=== PATIENT | male | born 1950 | race African-American/Black ===

== ENCOUNTER 2024-11-07 09:08 | Inpatient (IN) | payer OTHER ==
[2024-11-07 09:58] LABS: Hematocrit 39.9 % (38.8-50.0); Hemoglobin 13.5 g/dL (13.5-17.5); Mean Corpuscular Hemoglobin 26.2 pg (27.0-33.0); Mean Corpuscular Volume 77.3 fL (81.2-95.1); Platelet Count 274 10x3/uL (150-450); Red Blood Cell (RBC) Count 5.16 10x6/uL (4.32-5.72); White Blood Cell (WBC) Count 28.72 10x3/uL (3.5-10.5)
[2024-11-07 10:12] LABS: Troponin I 0.011 ng/mL (< 0.028)
[2024-11-07 10:32] LABS: Anisocytosis SLIGHT = 6-15 cells (100X) (0-5/hpf); MDiff Complete? YES; Microcytosis SLIGHT = 6-15 cells (100X) (0-5/hpf); Platelet Adequacy Comment Appears Adequate
[2024-11-07] MEDS ORDERED: Iopamidol 370 76% 100 ML VIAL ONE (10:54)
[2024-11-07 11:32] LABS: ALT (SGPT) 15 U/L (Less than 45); AST (SGOT) 23 U/L (11-34); Albumin 3.6 g/dL (3.1-4.5); Alkaline Phosphatase 63 U/L (40-110); Anion Gap 13 mmol/L (10-20); BUN (Urea Nitrogen) 21 mg/dL (8.4-25.7); Bilirubin, Total 0.5 mg/dL (0.3-1.2); Calc. Creatinine Clearance 0 mL/min (70-130); Calcium 8.9 mg/dL (7.8-10.44); Carbon Dioxide 20 mmol/L (23-31); Chloride 115 mmol/L (98-107); Globulin 3.2 g/dL (2.4-3.5); Glucose 105 mg/dL (83-110); Potassium 3.8 mmol/L (3.5-5.1); Sodium 144 mmol/L (136-145)
[2024-11-07] MEDS ORDERED: Cefepime 2 GM VIAL ONE (11:48)
[2024-11-07 12:51] LABS: Glucose, Urine (Dipstick) Normal (Negative); Leukocyte 500 (Negative); Protein, Urine (Dipstick) 15 mg/dl (Neg-Trace); Specific Gravity, Urine 1.010 (1.005-1.030)
[2024-11-07 13:00] LABS: CAUTI Indications for Culture Alt mental st,lethar; RBC/HPF 0-3 HPF (0-3); WBC/HPF 21-50 HPF (0-3)
[2024-11-07 13:01] LABS: Bacteria/HPF 4+ HPF (None Seen); Urine Culture Reflex Yes Yes
[2024-11-07] MEDS ORDERED: Senokot S 8.6-50 MG TAB PO PRN (13:49)
[2024-11-07] MEDS ORDERED: Albuterol 2.5 MG (3 mL) NEB NEB PRN (14:10)
[2024-11-07] MEDS: VANCOMYCIN 2 GRAM/400 ML BAG 2 GM in Premix 1 BAG IVPB SCH (17:18)
[2024-11-07] MEDS: Enoxaparin 40 MG (0.4 mL) SYRINGE SC SCH (17:18)
[2024-11-07 17:23] VITALS: BMI 24.9
[2024-11-07] MEDS: cefTRIAXone\\ROCEPHIN 1 GM in Sodium Chloride 0.9% 100 ML IVPB SCH (20:33)
[2024-11-07] MEDS: Melatonin 3 MG TAB PO PRN (21:27)
[2024-11-08 04:22] LABS: #Basophils 0.06 10x3/uL (0.0-0.2); #Eosinophils 0.04 10x3/uL (0.0-0.5); #Monocytes 1.72 10x3/uL (0.0-1.1); #Neutrophils 18.63 10x3/uL (1.5-8.4); %Basophils 0.3 % (0.0-2.0); %Eosinophils 0.2 % (0.0-6.0); %Lymphocytes 6.2 % (18.0-47.0); %Monocytes 7.8 % (0.0-10.0); %Neutrophils 84.3 % (40.0-75.0); Hematocrit 36.3 % (38.8-50.0); Hemoglobin 11.9 g/dL (13.5-17.5); Mean Corpuscular Hemoglobin 25.0 pg (27.0-33.0); Mean Corpuscular Volume 76.3 fL (81.2-95.1); Platelet Count 219 10x3/uL (150-450); Red Blood Cell (RBC) Count 4.76 10x6/uL (4.32-5.72); White Blood Cell (WBC) Count 22.10 10x3/uL (3.5-10.5)
[2024-11-08 04:41] LABS: Anion Gap 14 mmol/L (10-20); BUN (Urea Nitrogen) 18 mg/dL (8.4-25.7); Calc. Creatinine Clearance 50 mL/min (70-130); Calcium 8.6 mg/dL (7.8-10.44); Carbon Dioxide 19 mmol/L (23-31); Chloride 112 mmol/L (98-107); Glucose 114 mg/dL (83-110); Potassium 3.7 mmol/L (3.5-5.1); Sodium 141 mmol/L (136-145)
[2024-11-08] MEDS: Enoxaparin 40 MG (0.4 mL) SYRINGE SC SCH (08:27)
[2024-11-08] MEDS: Sodium Bicarbonate Tab 325 MG TAB PO SCH ×2 (11:27→16:16)
[2024-11-08] MEDS: Vancomycin 1.5 GRAM/300 ML BAG 1.5 GM in Premix 1 BAG IVPB SCH (14:51)
[2024-11-08] MEDS: Aspirin 81 mg Enteric Coated Tablet PO SCH (14:51)
[2024-11-08] MEDS: Gabapentin 300 MG CAP PO SCH (14:52)
[2024-11-08] MEDS: Vancomycin 1 GM in Premix 1 BAG IVPB SCH (16:03)
[2024-11-08] MEDS: Calcium Carbonate 500 MG ChewTAB PO PRN (19:15)
[2024-11-08] MEDS: Ondansetron PF 4 MG/2 ML Vial IVP PRN (19:42)
[2024-11-09 09:31] VITALS: BP 149/73; TEMP 98.6
[2024-11-09] MEDS: Pantoprazole 40 MG DR.TAB PO SCH (09:33)
[2024-11-09] MEDS: Ferrous Sulfate 325 MG TAB PO SCH (09:33)
[2024-11-09] MEDS: Aspirin 81 mg Enteric Coated Tablet PO SCH (09:34)
[2024-11-09 09:35] LABS: #Basophils 0.04 10x3/uL (0.0-0.2); #Eosinophils 0.12 10x3/uL (0.0-0.5); #Monocytes 1.11 10x3/uL (0.0-1.1); #Neutrophils 14.24 10x3/uL (1.5-8.4); %Basophils 0.2 % (0.0-2.0); %Eosinophils 0.7 % (0.0-6.0); %Lymphocytes 7.1 % (18.0-47.0); %Monocytes 6.6 % (0.0-10.0); %Neutrophils 84.9 % (40.0-75.0); Hematocrit 41.2 % (38.8-50.0); Hemoglobin 13.2 g/dL (13.5-17.5); Mean Corpuscular Hemoglobin 24.9 pg (27.0-33.0); Mean Corpuscular Volume 77.6 fL (81.2-95.1); Platelet Count 250 10x3/uL (150-450); Red Blood Cell (RBC) Count 5.31 10x6/uL (4.32-5.72); White Blood Cell (WBC) Count 16.79 10x3/uL (3.5-10.5)
[2024-11-09] MEDS: Acetaminophen 325 MG TAB PO PRN (09:39)
[2024-11-09 09:47] LABS: Anion Gap 14 mmol/L (10-20); BUN (Urea Nitrogen) 17 mg/dL (8.4-25.7); Calc. Creatinine Clearance 57 mL/min (70-130); Calcium 9.2 mg/dL (7.8-10.44); Carbon Dioxide 23 mmol/L (23-31); Chloride 108 mmol/L (98-107); Glucose 101 mg/dL (83-110); Potassium 3.9 mmol/L (3.5-5.1); Sodium 141 mmol/L (136-145)
== END 2024-11-09 13:30 | disposition home or self-care (01) | DRG 872 ==
LOC: CSHERS 09:08 → CSHERHOLD 13:47 → CSHTELE 15:45
PROVIDERS: ADMIT Hospitalist; ATTEND Hospitalist
DX: A41.89 Other specified sepsis (principal); I69.354 Hemiplegia and hemiparesis following cerebral infarction affecting left non-dominant side; N39.0 Urinary tract infection, site not specified; E87.20 Acidosis, unspecified; E78.5 Hyperlipidemia, unspecified; J44.9 Chronic obstructive pulmonary disease, unspecified; N18.31 Chronic kidney disease, stage 3a; N32.81 Overactive bladder; E87.8 Other disorders of electrolyte and fluid balance, not elsewhere classified; N40.0 Benign prostatic hyperplasia without lower urinary tract symptoms; Z87.891 Personal history of nicotine dependence
CPT/HCPCS: 36415; 71045; 71275; 80048; 80053; 81001; 83605; 83880; 84484; 85025; 87040; 87077; 87086; 87149; 87186; 93005; 94760; 96365; 96375; J0692; J0696; J1650; J2405; J3373; J3375; Q9967